=== PATIENT | female | born 1980 | race Caucasian/White ===

== ENCOUNTER → 2016-07-17 | Day surgery (SDC) | payer OTHER ==
[~2016-07-17] VITALS: Ht 170.2 cm; Wt 133.4 kg
[~2016-07-17] MED LIST: ADVIL200 MG PO; NORCO 5-325 TA1 EACH PO; PRILOSEC20 MG PO; PROVENTIL OR V6.7 GM INH; TYLENOL EXTRA500 MG PO
--- NOTE | ~2016-07-17 | OR ---
PATIENT'S NAME: MAEGAN WOODSON [facility] AGE: 35 Y [address] ROOM: [place] [address] LOCATION: [facility] – [place] ADMIT DATE: 07/17/2016 OR/Procedure Report DISCHARGE DATE: FAMILY PHYSICIAN: Zena Lance MD ATTENDING PHYSICIAN: Grzegorz Choudhary SURGEON: Grzegorz Choudhary MD MATERIAL PREPARATION WORKER: Aletha Reed PA-C DATE OF PROCEDURE: 07/17/2016 PREOPERATIVE DIAGNOSIS: Cholelithiasis. POSTOPERATIVE DIAGNOSIS: Cholelithiasis. PROCEDURE: Laparoscopic cholecystectomy. FINDINGS: The patient had a very large gallstone. ESTIMATED BLOOD LOSS: 20 mL. COMPLICATIONS: None. INDICATIONS: The patient is a 35-year-old female, who presented with abdominal pain, mainly in the right upper quadrant. She was found to have a very large gallstone. We discussed cholecystectomy with the patient, the risks, benefits, and alternatives, and she elected to proceed. DESCRIPTION OF PROCEDURE: The patient was taken to the operating room. She was placed supine on the operating room table. She was given IV sedation, subsequently intubated. The abdominal cavity was prepped with ChloraPrep and sterilely draped. Local anesthetic was infiltrated just superior to the umbilicus. A transverse incision was created. The abdomen was elevated. A Veress needle was inserted. Pneumoperitoneum was induced. Following this, a 5 mm trocar was inserted, followed by insertion of the camera. There was no injury from initial trocar placement. The gallbladder did appear dilated. 3 more trocars were then placed, an 11 mm epigastric and two 5 mm right subcostal ports. Skin overlying the peritoneum was first anesthetized prior to making these incisions. All 3 of these trocars were inserted under direct visualization. The gallbladder was grasped and was elevated over the dome of the liver. The infundibulum was grasped and retracted inferiorly and laterally to expose the Calot triangle. Due to her obesity, visualization was more difficult. There was very minimal mobility of liver. Ultimately we were able to dissect around the cystic duct and artery. These structures were then doubly clipped and divided. The gallbladder was then removed from liver bed using electrocautery. This was placed in an EndoCatch bag and brought up to the epigastric port site. A large stone was present. We were unable to break PATIENT'S NAME: MAEGAN WOODSON [facility] AGE: 35 Y [address] ROOM: [place] [address] LOCATION: [facility] [place] ADMIT DATE: 07/17/2016 OR/Procedure Report DISCHARGE DATE: FAMILY PHYSICIAN: Zena Lance MD ATTENDING PHYSICIAN: Grzegorz Choudhary this up. We stretched the fascia in order to deliver this and also had increased the size of our skin incision, both the gallbladder and stone were retrieved. Once completed, the operative field was inspected. It appeared hemostatic. The area was irrigated. Fluid was removed. Clips appeared to be in good position on both the cystic duct and artery. The pneumoperitoneum was then released. Prior to releasing the pneumoperitoneum, an Endo Close was used to close the epigastric trocar site with 0 Vicryl suture. All the skin edges were closed with 4-0 Monocryl suture. Steri-Strips and sterile dressings were placed. Aletha Reed was the assistant associate full professor during the procedure, was necessary for visualization, retraction, and hemostasis throughout the case. GRZEGORZ CHOUDHARY MD BJO/modl /[id number] d: 07/17/16 1736 t: 07/29/16 2044, OPERATIVE SUMMARY
== END | disposition disaster alternative care site (69) ==
LOC: GPOC 07-10 08:00 → GSDC 06:22
PROC: 0FT44ZZ Resection of Gallbladder, Percutaneous Endoscopic Approach (ICD-10-PCS; principal; 2016-07-17)
DX: K80.10 Calculus of gallbladder with chronic cholecystitis without obstruction (principal); E66.01 Morbid (severe) obesity due to excess calories; Z68.42 Body mass index [BMI] 45.0-49.9, adult; Z98.890 Other specified postprocedural states; Z79.899 Other long term (current) drug therapy
CPT/HCPCS: J0131; J0694; J1100; J1200; J1885; J2001; J2405; J2550; J3010; J7030